=== PATIENT | male | born 1965 | race Caucasian/White ===

== ENCOUNTER 2022-01-30 20:27 | Inpatient (IN) | payer OTHER ==
[2022-01-30 21:06] VITALS: BMI 32.7
[2022-01-30] MEDS ORDERED: IBUPROFEN 400 MG TABLET (FP) PO PRN (21:15)
[2022-01-30] MEDS ORDERED: NALOXONE HCL 0.4 MG/ML VIAL IM PRN (21:15)
[2022-01-30] MEDS ORDERED: LOPERAMIDE HCL 2 MG CAPSULE PO PRN (21:15)
[2022-01-30] MEDS ORDERED: P-EPHED 60MG/TRIPROLIDI 2.5MG TABLET PO PRN (21:15)
[2022-01-30] MEDS ORDERED: guaiFENesin 200 MG/10 ML 10 ML UNIT-DOSE CUPS PO PRN (21:15)
[2022-01-30] MEDS ORDERED: MAG HYDROX/AL HYDROX/SIMETH 30 ML UNIT-DOSE CUP PO PRN (21:15)
[2022-01-30] MEDS ORDERED: NALOXONE (NARCAN) HCL 4 MG/0.1 ML SPRAY NS PRN (21:15)
[2022-01-30] MEDS ORDERED: MAGNESIUM CITRATE 300 ML BOTTLE PO PRN (21:15)
[2022-01-30] MEDS ORDERED: MAGNESIUM HYDROX 2400MG/30ML ORAL SUSPENSION 30 ML CUP PO PRN (21:15)
[2022-01-31] MEDS: MELATONIN 5 MG TABLETS PO SCH ×2 (02:10→21:19)
[2022-01-31] MEDS: THIAMINE HCL 100 MG TABLET (FP) PO SCH ×2 (02:10→21:19)
[2022-01-31] MEDS ORDERED: APIXABAN 5 MG TABLET PO SCH (10:00)
[2022-01-31] MEDS: ASPIRIN 81 MG CHEWABLE TABLETS PO SCH (10:22)
[2022-01-31] MEDS: amLODIPine BESYLATE 10 MG TABLET (FP) PO SCH (10:22)
[2022-01-31] MEDS: PANTOPRAZOLE 20 MG TABLET PO SCH (10:22)
[2022-01-31] MEDS: PRENATAL VITAMINS W/ FOLIC ACID TABLET (FP) PO SCH (10:23)
[2022-01-31 11:34] LABS: HEMATOCRIT 38.6 % (35.4-49); HEMOGLOBIN 13.1 GM/dL (11.7-16.9); MEAN CELL VOLUME 85.4 fl (80-96); MEAN PLT VOLUME 8.9 fl (7.5-11.1); PLATELET COUNT 275 10^3/uL (134-434); RBC 4.52 M/mm3 (4.00-5.60); RDW 14.9 % (11.9-15.9); WHITE BLOOD COUNT 7.2 K/mm3 (4.0-10.0)
[2022-01-31 12:45] LABS: CALCIUM 8.8 mg/dL (8.5-10.1)
[2022-01-31 12:47] LABS: ALBUMIN 3.9 g/dl (3.4-5.0); BLOOD UREA NITROGEN 12.7 mg/dL (7-18)
[2022-01-31 12:48] LABS: CREATININE 1.1 mg/dL (0.55-1.3)
[2022-01-31 12:51] LABS: BILIRUBIN,TOTAL 0.8 mg/dL (0.2-1); TOT PROT 7.2 g/dl (6.4-8.2)
[2022-01-31 13:40] LABS: SYPHILIS W/ RPR CONF NON-REACTIVE (NONREACTIVE)
[2022-01-31 14:09] LABS: HIV INTERPRETATION NEGATIVE (NEGATIVE)
[2022-01-31 18:45] LABS: PH,URINE 5.5 (5.0-8.0); URINE APPEARANCE CLEAR; URINE BILIRUBIN NEGATIVE (NEGATIVE); URINE COLOR YELLOW; URINE GLUCOSE (UA) NEGATIVE (NEGATIVE); URINE KETONE TRACE (NEGATIVE); URINE LEUK ESTERASE NEGATIVE (NEGATIVE); URINE NITRITE NEGATIVE (NEGATIVE); URINE PROTEIN TRACE (NEGATIVE)
[2022-01-31] MEDS: LISINOPRIL 20 MG TABLET PO SCH (21:19)
[2022-01-31] MEDS: APIXABAN 5 MG TABLET PO SCH (21:20)
[2022-02-01] MEDS: APIXABAN 5 MG TABLET PO SCH ×2 (09:22→21:12)
[2022-02-01] MEDS: PANTOPRAZOLE 20 MG TABLET PO SCH (09:22)
[2022-02-01] MEDS: ASPIRIN 81 MG CHEWABLE TABLETS PO SCH (09:22)
[2022-02-01] MEDS: PRENATAL VITAMINS W/ FOLIC ACID TABLET (FP) PO SCH (09:22)
[2022-02-01] MEDS: amLODIPine BESYLATE 10 MG TABLET (FP) PO SCH (09:22)
[2022-02-01] MEDS: THIAMINE HCL 100 MG TABLET (FP) PO SCH (21:12)
[2022-02-01] MEDS: MELATONIN 5 MG TABLETS PO SCH (21:12)
[2022-02-01] MEDS: LISINOPRIL 20 MG TABLET PO SCH (21:12)
[2022-02-02 00:06] LABS: SARS-CoV-2 NAA Not Detected (Not Detected)
[2022-02-02] MEDS: APIXABAN 5 MG TABLET PO SCH ×2 (10:12→21:57)
[2022-02-02] MEDS: amLODIPine BESYLATE 10 MG TABLET (FP) PO SCH (10:12)
[2022-02-02] MEDS: PRENATAL VITAMINS W/ FOLIC ACID TABLET (FP) PO SCH (10:12)
[2022-02-02] MEDS: PANTOPRAZOLE 20 MG TABLET PO SCH (10:13)
[2022-02-02] MEDS: ASPIRIN 81 MG CHEWABLE TABLETS PO SCH (10:13)
[2022-02-02] MEDS: MELATONIN 5 MG TABLETS PO SCH (21:58)
[2022-02-02] MEDS: LISINOPRIL 20 MG TABLET PO SCH (21:58)
[2022-02-02] MEDS: THIAMINE HCL 100 MG TABLET (FP) PO SCH (21:58)
[2022-02-03] MEDS: APIXABAN 5 MG TABLET PO SCH ×2 (10:49→21:10)
[2022-02-03] MEDS: PRENATAL VITAMINS W/ FOLIC ACID TABLET (FP) PO SCH (10:49)
[2022-02-03] MEDS: amLODIPine BESYLATE 10 MG TABLET (FP) PO SCH (10:49)
[2022-02-03] MEDS: PANTOPRAZOLE 20 MG TABLET PO SCH ×2 (10:49→21:11)
[2022-02-03] MEDS: ASPIRIN 81 MG CHEWABLE TABLETS PO SCH (10:51)
[2022-02-03] MEDS: MELATONIN 5 MG TABLETS PO SCH (21:09)
[2022-02-03] MEDS: THIAMINE HCL 100 MG TABLET (FP) PO SCH (21:09)
[2022-02-03] MEDS: LISINOPRIL 20 MG TABLET PO SCH (21:10)
[2022-02-03] MEDS: ATORVASTATIN CA 40 MG TABLET (FP) PO SCH (21:11)
[2022-02-04] MEDS: PRENATAL VITAMINS W/ FOLIC ACID TABLET (FP) PO SCH (10:09)
[2022-02-04] MEDS: APIXABAN 5 MG TABLET PO SCH ×2 (10:10→21:23)
[2022-02-04] MEDS: PANTOPRAZOLE 20 MG TABLET PO SCH ×3 (10:10→21:24)
[2022-02-04] MEDS: ASPIRIN 81 MG CHEWABLE TABLETS PO SCH (10:10)
[2022-02-04] MEDS: amLODIPine BESYLATE 10 MG TABLET (FP) PO SCH (10:10)
[2022-02-04] MEDS: MELATONIN 5 MG TABLETS PO SCH (21:23)
[2022-02-04] MEDS: THIAMINE HCL 100 MG TABLET (FP) PO SCH (21:23)
[2022-02-04] MEDS: ATORVASTATIN CA 40 MG TABLET (FP) PO SCH (21:23)
[2022-02-04] MEDS: LISINOPRIL 20 MG TABLET PO SCH (21:23)
[2022-02-05] MEDS: ASPIRIN 81 MG CHEWABLE TABLETS PO SCH (09:58)
[2022-02-05] MEDS: APIXABAN 5 MG TABLET PO SCH ×2 (09:58→21:09)
[2022-02-05] MEDS: amLODIPine BESYLATE 10 MG TABLET (FP) PO SCH (09:59)
[2022-02-05] MEDS: PANTOPRAZOLE 20 MG TABLET PO SCH ×3 (09:59→21:09)
[2022-02-05] MEDS: PRENATAL VITAMINS W/ FOLIC ACID TABLET (FP) PO SCH (09:59)
[2022-02-05] MEDS: ATORVASTATIN CA 40 MG TABLET (FP) PO SCH (21:09)
[2022-02-05] MEDS: MELATONIN 5 MG TABLETS PO SCH (21:09)
[2022-02-05] MEDS: LISINOPRIL 20 MG TABLET PO SCH (21:09)
[2022-02-05] MEDS: THIAMINE HCL 100 MG TABLET (FP) PO SCH (21:09)
[2022-02-06] MEDS: PANTOPRAZOLE 20 MG TABLET PO SCH ×2 (09:54→22:01)
[2022-02-06] MEDS: APIXABAN 5 MG TABLET PO SCH ×2 (09:54→22:02)
[2022-02-06] MEDS: amLODIPine BESYLATE 10 MG TABLET (FP) PO SCH (09:54)
[2022-02-06] MEDS: ASPIRIN 81 MG CHEWABLE TABLETS PO SCH (09:54)
[2022-02-06] MEDS: PRENATAL VITAMINS W/ FOLIC ACID TABLET (FP) PO SCH (09:54)
[2022-02-06] MEDS ORDERED: BUPRENORPHINE/NALOXONE 4 MG/1 MG FILM PACKET SL ONE (13:15)
[2022-02-06] MEDS: MELATONIN 5 MG TABLETS PO SCH (22:00)
[2022-02-06] MEDS: LISINOPRIL 20 MG TABLET PO SCH (22:01)
[2022-02-06] MEDS: THIAMINE HCL 100 MG TABLET (FP) PO SCH (22:02)
[2022-02-06] MEDS: ATORVASTATIN CA 40 MG TABLET (FP) PO SCH (22:02)
[2022-02-07] MEDS: PRENATAL VITAMINS W/ FOLIC ACID TABLET (FP) PO SCH (09:35)
[2022-02-07] MEDS: APIXABAN 5 MG TABLET PO SCH ×2 (09:35→21:04)
[2022-02-07] MEDS: amLODIPine BESYLATE 10 MG TABLET (FP) PO SCH (09:35)
[2022-02-07] MEDS: ASPIRIN 81 MG CHEWABLE TABLETS PO SCH (09:35)
[2022-02-07] MEDS: BUPRENORPHINE/NALOXONE 4 MG/1 MG FILM PACKET SL SCH ×2 (09:35→21:06)
[2022-02-07] MEDS: PANTOPRAZOLE 20 MG TABLET PO SCH ×2 (09:35→21:04)
[2022-02-07] MEDS: MELATONIN 5 MG TABLETS PO SCH (21:04)
[2022-02-07] MEDS: ATORVASTATIN CA 40 MG TABLET (FP) PO SCH (21:04)
[2022-02-07] MEDS: THIAMINE HCL 100 MG TABLET (FP) PO SCH (21:05)
[2022-02-07] MEDS: LISINOPRIL 20 MG TABLET PO SCH (21:05)
[2022-02-08] MEDS: amLODIPine BESYLATE 10 MG TABLET (FP) PO SCH (05:55)
[2022-02-08] MEDS: PANTOPRAZOLE 20 MG TABLET PO SCH ×2 (09:37→21:41)
[2022-02-08] MEDS: ASPIRIN 81 MG CHEWABLE TABLETS PO SCH (09:37)
[2022-02-08] MEDS: APIXABAN 5 MG TABLET PO SCH ×2 (09:37→21:42)
[2022-02-08] MEDS: PRENATAL VITAMINS W/ FOLIC ACID TABLET (FP) PO SCH (09:37)
[2022-02-08] MEDS: BUPRENORPHINE/NALOXONE 4 MG/1 MG FILM PACKET SL SCH ×2 (09:37→21:43)
[2022-02-08] MEDS: ATORVASTATIN CA 40 MG TABLET (FP) PO SCH (21:41)
[2022-02-08] MEDS: LISINOPRIL 20 MG TABLET PO SCH (21:41)
[2022-02-08] MEDS: THIAMINE HCL 100 MG TABLET (FP) PO SCH (21:41)
[2022-02-08] MEDS: MELATONIN 5 MG TABLETS PO SCH (21:43)
[2022-02-09] MEDS: amLODIPine BESYLATE 10 MG TABLET (FP) PO SCH (05:53)
[2022-02-09] MEDS: PANTOPRAZOLE 20 MG TABLET PO SCH ×2 (09:54→17:46)
[2022-02-09] MEDS: APIXABAN 5 MG TABLET PO SCH ×2 (09:54→17:47)
[2022-02-09] MEDS: PRENATAL VITAMINS W/ FOLIC ACID TABLET (FP) PO SCH (09:54)
[2022-02-09] MEDS: ASPIRIN 81 MG CHEWABLE TABLETS PO SCH (09:54)
[2022-02-09] MEDS: BUPRENORPHINE/NALOXONE 4 MG/1 MG FILM PACKET SL SCH ×2 (09:55→17:48)
[2022-02-09] MEDS: LISINOPRIL 20 MG TABLET PO SCH (21:24)
[2022-02-09] MEDS: THIAMINE HCL 100 MG TABLET (FP) PO SCH (21:24)
[2022-02-09] MEDS: MELATONIN 5 MG TABLETS PO SCH (21:24)
[2022-02-09] MEDS: ATORVASTATIN CA 40 MG TABLET (FP) PO SCH (21:25)
[2022-02-10] MEDS: APIXABAN 5 MG TABLET PO SCH ×2 (06:19→18:38)
[2022-02-10] MEDS: PANTOPRAZOLE 20 MG TABLET PO SCH ×2 (06:19→18:38)
[2022-02-10] MEDS: amLODIPine BESYLATE 10 MG TABLET (FP) PO SCH (06:19)
[2022-02-10] MEDS: ASPIRIN 81 MG CHEWABLE TABLETS PO SCH (06:19)
[2022-02-10] MEDS: BUPRENORPHINE/NALOXONE 4 MG/1 MG FILM PACKET SL SCH ×2 (09:52→18:38)
[2022-02-10] MEDS: PRENATAL VITAMINS W/ FOLIC ACID TABLET (FP) PO SCH (09:52)
[2022-02-10] MEDS: LISINOPRIL 20 MG TABLET PO SCH (21:27)
[2022-02-10] MEDS: ATORVASTATIN CA 40 MG TABLET (FP) PO SCH (21:27)
[2022-02-10] MEDS: MELATONIN 5 MG TABLETS PO SCH (21:27)
[2022-02-10] MEDS: THIAMINE HCL 100 MG TABLET (FP) PO SCH (21:27)
[2022-02-11] MEDS: APIXABAN 5 MG TABLET PO SCH ×2 (06:10→18:44)
[2022-02-11] MEDS: PANTOPRAZOLE 20 MG TABLET PO SCH ×2 (06:10→18:44)
[2022-02-11] MEDS: ASPIRIN 81 MG CHEWABLE TABLETS PO SCH (06:10)
[2022-02-11] MEDS: amLODIPine BESYLATE 10 MG TABLET (FP) PO SCH (06:10)
[2022-02-11] MEDS: PRENATAL VITAMINS W/ FOLIC ACID TABLET (FP) PO SCH (09:59)
[2022-02-11] MEDS: BUPRENORPHINE/NALOXONE 4 MG/1 MG FILM PACKET SL SCH ×2 (09:59→18:44)
[2022-02-11] MEDS: MELATONIN 5 MG TABLETS PO SCH (21:13)
[2022-02-11] MEDS: THIAMINE HCL 100 MG TABLET (FP) PO SCH (21:13)
[2022-02-11] MEDS: ATORVASTATIN CA 40 MG TABLET (FP) PO SCH (21:14)
[2022-02-11] MEDS: LISINOPRIL 20 MG TABLET PO SCH (21:14)
[2022-02-12] MEDS: APIXABAN 5 MG TABLET PO SCH ×2 (06:27→18:28)
[2022-02-12] MEDS: PANTOPRAZOLE 20 MG TABLET PO SCH ×2 (06:27→18:28)
[2022-02-12] MEDS: amLODIPine BESYLATE 10 MG TABLET (FP) PO SCH (06:28)
[2022-02-12] MEDS: ASPIRIN 81 MG CHEWABLE TABLETS PO SCH (06:28)
[2022-02-12] MEDS: BUPRENORPHINE/NALOXONE 4 MG/1 MG FILM PACKET SL SCH ×2 (09:40→18:28)
[2022-02-12] MEDS: PRENATAL VITAMINS W/ FOLIC ACID TABLET (FP) PO SCH (09:40)
[2022-02-12] MEDS: LISINOPRIL 20 MG TABLET PO SCH (21:22)
[2022-02-12] MEDS: MELATONIN 5 MG TABLETS PO SCH (21:22)
[2022-02-12] MEDS: ATORVASTATIN CA 40 MG TABLET (FP) PO SCH (21:22)
[2022-02-12] MEDS: THIAMINE HCL 100 MG TABLET (FP) PO SCH (21:22)
[2022-02-13] MEDS: amLODIPine BESYLATE 10 MG TABLET (FP) PO SCH (06:15)
[2022-02-13] MEDS: PANTOPRAZOLE 20 MG TABLET PO SCH ×2 (06:15→17:33)
[2022-02-13] MEDS: ASPIRIN 81 MG CHEWABLE TABLETS PO SCH (06:15)
[2022-02-13] MEDS: APIXABAN 5 MG TABLET PO SCH ×2 (06:15→17:33)
[2022-02-13] MEDS: PRENATAL VITAMINS W/ FOLIC ACID TABLET (FP) PO SCH (09:37)
[2022-02-13] MEDS: BUPRENORPHINE/NALOXONE 4 MG/1 MG FILM PACKET SL SCH ×2 (09:38→17:33)
[2022-02-13] MEDS: ATORVASTATIN CA 40 MG TABLET (FP) PO SCH (21:17)
[2022-02-13] MEDS: LISINOPRIL 20 MG TABLET PO SCH (21:17)
[2022-02-13] MEDS: MELATONIN 5 MG TABLETS PO SCH (21:17)
[2022-02-13] MEDS: THIAMINE HCL 100 MG TABLET (FP) PO SCH (21:17)
[2022-02-14] MEDS: amLODIPine BESYLATE 10 MG TABLET (FP) PO SCH (06:36)
[2022-02-14] MEDS: ASPIRIN 81 MG CHEWABLE TABLETS PO SCH (06:36)
[2022-02-14] MEDS: APIXABAN 5 MG TABLET PO SCH ×2 (06:36→18:00)
[2022-02-14] MEDS: PANTOPRAZOLE 20 MG TABLET PO SCH ×2 (06:36→18:00)
[2022-02-14] MEDS: BUPRENORPHINE/NALOXONE 4 MG/1 MG FILM PACKET SL SCH ×2 (09:46→18:00)
[2022-02-14] MEDS: PRENATAL VITAMINS W/ FOLIC ACID TABLET (FP) PO SCH (09:46)
[2022-02-14] MEDS: ATORVASTATIN CA 40 MG TABLET (FP) PO SCH (21:41)
[2022-02-14] MEDS: THIAMINE HCL 100 MG TABLET (FP) PO SCH (21:41)
[2022-02-14] MEDS: MELATONIN 5 MG TABLETS PO SCH (21:41)
[2022-02-14] MEDS: LISINOPRIL 20 MG TABLET PO SCH (21:41)
[2022-02-15] MEDS: ASPIRIN 81 MG CHEWABLE TABLETS PO SCH (06:06)
[2022-02-15] MEDS: amLODIPine BESYLATE 10 MG TABLET (FP) PO SCH (06:06)
[2022-02-15] MEDS: PANTOPRAZOLE 20 MG TABLET PO SCH ×2 (06:06→18:51)
[2022-02-15] MEDS: APIXABAN 5 MG TABLET PO SCH ×2 (06:06→18:51)
[2022-02-15] MEDS: BUPRENORPHINE/NALOXONE 4 MG/1 MG FILM PACKET SL SCH ×2 (09:41→18:51)
[2022-02-15] MEDS: PRENATAL VITAMINS W/ FOLIC ACID TABLET (FP) PO SCH (09:41)
[2022-02-15] MEDS ORDERED: ATORVASTATIN CA 20 MG TABLET (FP) ONE (18:50)
[2022-02-15] MEDS: THIAMINE HCL 100 MG TABLET (FP) PO SCH (21:17)
[2022-02-15] MEDS: MELATONIN 5 MG TABLETS PO SCH (21:17)
[2022-02-15] MEDS: LISINOPRIL 20 MG TABLET PO SCH (21:18)
[2022-02-15] MEDS: ATORVASTATIN CA 40 MG TABLET (FP) PO SCH (21:18)
[2022-02-16] MEDS: amLODIPine BESYLATE 10 MG TABLET (FP) PO SCH (06:12)
[2022-02-16] MEDS: APIXABAN 5 MG TABLET PO SCH ×2 (06:12→17:51)
[2022-02-16] MEDS: ASPIRIN 81 MG CHEWABLE TABLETS PO SCH (06:12)
[2022-02-16] MEDS: PANTOPRAZOLE 20 MG TABLET PO SCH ×2 (06:12→17:51)
[2022-02-16] MEDS: PRENATAL VITAMINS W/ FOLIC ACID TABLET (FP) PO SCH (09:49)
[2022-02-16] MEDS: BUPRENORPHINE/NALOXONE 4 MG/1 MG FILM PACKET SL SCH ×2 (09:50→17:51)
[2022-02-16] MEDS: THIAMINE HCL 100 MG TABLET (FP) PO SCH (21:18)
[2022-02-16] MEDS: ATORVASTATIN CA 40 MG TABLET (FP) PO SCH (21:18)
[2022-02-16] MEDS: LISINOPRIL 20 MG TABLET PO SCH (21:18)
[2022-02-16] MEDS: MELATONIN 5 MG TABLETS PO SCH (21:19)
[2022-02-16] MEDS: hydrOXYzine PAMOATE 25 MG CAPSULE (FP) PO PRN (21:19)
[2022-02-17] MEDS: amLODIPine BESYLATE 10 MG TABLET (FP) PO SCH (06:21)
[2022-02-17] MEDS: PANTOPRAZOLE 20 MG TABLET PO SCH ×2 (06:21→18:12)
[2022-02-17] MEDS: ASPIRIN 81 MG CHEWABLE TABLETS PO SCH (06:21)
[2022-02-17] MEDS: APIXABAN 5 MG TABLET PO SCH ×2 (06:22→18:12)
[2022-02-17] MEDS: BUPRENORPHINE/NALOXONE 4 MG/1 MG FILM PACKET SL SCH ×2 (09:58→18:12)
[2022-02-17] MEDS: PRENATAL VITAMINS W/ FOLIC ACID TABLET (FP) PO SCH (09:58)
[2022-02-17] MEDS: hydrOXYzine PAMOATE 25 MG CAPSULE (FP) PO PRN (21:21)
[2022-02-17] MEDS: LISINOPRIL 20 MG TABLET PO SCH (21:21)
[2022-02-17] MEDS: ATORVASTATIN CA 40 MG TABLET (FP) PO SCH (21:21)
[2022-02-17] MEDS: MELATONIN 5 MG TABLETS PO SCH (21:21)
[2022-02-17] MEDS: THIAMINE HCL 100 MG TABLET (FP) PO SCH (21:21)
[2022-02-18] MEDS: APIXABAN 5 MG TABLET PO SCH ×2 (05:57→17:36)
[2022-02-18] MEDS: ASPIRIN 81 MG CHEWABLE TABLETS PO SCH (05:57)
[2022-02-18] MEDS: PANTOPRAZOLE 20 MG TABLET PO SCH ×2 (05:58→17:36)
[2022-02-18] MEDS: amLODIPine BESYLATE 10 MG TABLET (FP) PO SCH (05:58)
[2022-02-18] MEDS: PRENATAL VITAMINS W/ FOLIC ACID TABLET (FP) PO SCH (10:03)
[2022-02-18] MEDS: BUPRENORPHINE/NALOXONE 4 MG/1 MG FILM PACKET SL SCH ×2 (10:04→17:36)
[2022-02-18] MEDS: LISINOPRIL 20 MG TABLET PO SCH (21:05)
[2022-02-18] MEDS: hydrOXYzine PAMOATE 25 MG CAPSULE (FP) PO PRN (21:05)
[2022-02-18] MEDS: ATORVASTATIN CA 40 MG TABLET (FP) PO SCH (21:05)
[2022-02-18] MEDS: THIAMINE HCL 100 MG TABLET (FP) PO SCH (21:05)
[2022-02-18] MEDS: MELATONIN 5 MG TABLETS PO SCH (21:05)
[2022-02-19] MEDS: APIXABAN 5 MG TABLET PO SCH ×2 (06:08→17:35)
[2022-02-19] MEDS: PANTOPRAZOLE 20 MG TABLET PO SCH ×2 (06:08→17:35)
[2022-02-19] MEDS: amLODIPine BESYLATE 10 MG TABLET (FP) PO SCH (06:08)
[2022-02-19] MEDS: ASPIRIN 81 MG CHEWABLE TABLETS PO SCH (06:08)
[2022-02-19] MEDS: PRENATAL VITAMINS W/ FOLIC ACID TABLET (FP) PO SCH (10:09)
[2022-02-19] MEDS: BUPRENORPHINE/NALOXONE 4 MG/1 MG FILM PACKET SL SCH ×2 (10:10→17:35)
[2022-02-19] MEDS: LISINOPRIL 20 MG TABLET PO SCH (21:15)
[2022-02-19] MEDS: THIAMINE HCL 100 MG TABLET (FP) PO SCH (21:15)
[2022-02-19] MEDS: ATORVASTATIN CA 40 MG TABLET (FP) PO SCH (21:15)
[2022-02-19] MEDS: hydrOXYzine PAMOATE 25 MG CAPSULE (FP) PO PRN (21:15)
[2022-02-19] MEDS: MELATONIN 5 MG TABLETS PO SCH (21:15)
[2022-02-20] MEDS: APIXABAN 5 MG TABLET PO SCH ×2 (06:10→17:11)
[2022-02-20] MEDS: amLODIPine BESYLATE 10 MG TABLET (FP) PO SCH (06:10)
[2022-02-20] MEDS: ASPIRIN 81 MG CHEWABLE TABLETS PO SCH (06:10)
[2022-02-20] MEDS: PANTOPRAZOLE 20 MG TABLET PO SCH ×2 (06:10→17:11)
[2022-02-20] MEDS: PRENATAL VITAMINS W/ FOLIC ACID TABLET (FP) PO SCH (10:48)
[2022-02-20] MEDS: BUPRENORPHINE/NALOXONE 4 MG/1 MG FILM PACKET SL SCH ×2 (10:48→17:11)
[2022-02-20] MEDS: ACETAMINOPHEN 325 MG TABLET (FP) PO PRN (14:26)
[2022-02-20] MEDS: MELATONIN 5 MG TABLETS PO SCH (21:09)
[2022-02-20] MEDS: THIAMINE HCL 100 MG TABLET (FP) PO SCH (21:09)
[2022-02-20] MEDS: LISINOPRIL 20 MG TABLET PO SCH (21:10)
[2022-02-20] MEDS: ATORVASTATIN CA 40 MG TABLET (FP) PO SCH (21:10)
[2022-02-20] MEDS: hydrOXYzine PAMOATE 25 MG CAPSULE (FP) PO PRN (21:10)
[2022-02-21] MEDS: APIXABAN 5 MG TABLET PO SCH ×2 (06:15→17:57)
[2022-02-21] MEDS: amLODIPine BESYLATE 10 MG TABLET (FP) PO SCH (06:15)
[2022-02-21] MEDS: ASPIRIN 81 MG CHEWABLE TABLETS PO SCH (06:15)
[2022-02-21] MEDS: PANTOPRAZOLE 20 MG TABLET PO SCH ×2 (06:15→17:57)
[2022-02-21] MEDS: BUPRENORPHINE/NALOXONE 4 MG/1 MG FILM PACKET SL SCH ×2 (10:14→17:58)
[2022-02-21] MEDS: PRENATAL VITAMINS W/ FOLIC ACID TABLET (FP) PO SCH (10:15)
[2022-02-21] MEDS: LISINOPRIL 20 MG TABLET PO SCH (21:42)
[2022-02-21] MEDS: ATORVASTATIN CA 40 MG TABLET (FP) PO SCH (21:42)
[2022-02-21] MEDS: hydrOXYzine PAMOATE 25 MG CAPSULE (FP) PO PRN (21:42)
[2022-02-21] MEDS: THIAMINE HCL 100 MG TABLET (FP) PO SCH (21:42)
[2022-02-21] MEDS: MELATONIN 5 MG TABLETS PO SCH (21:43)
[2022-02-22] MEDS: amLODIPine BESYLATE 10 MG TABLET (FP) PO SCH (06:19)
[2022-02-22] MEDS: APIXABAN 5 MG TABLET PO SCH ×2 (06:19→18:28)
[2022-02-22] MEDS: PANTOPRAZOLE 20 MG TABLET PO SCH ×2 (06:19→18:28)
[2022-02-22] MEDS: ASPIRIN 81 MG CHEWABLE TABLETS PO SCH (06:19)
[2022-02-22] MEDS: PRENATAL VITAMINS W/ FOLIC ACID TABLET (FP) PO SCH (09:55)
[2022-02-22] MEDS: BUPRENORPHINE/NALOXONE 4 MG/1 MG FILM PACKET SL SCH ×2 (09:56→18:28)
[2022-02-22] MEDS: THIAMINE HCL 100 MG TABLET (FP) PO SCH (21:13)
[2022-02-22] MEDS: LISINOPRIL 20 MG TABLET PO SCH (21:13)
[2022-02-22] MEDS: ATORVASTATIN CA 40 MG TABLET (FP) PO SCH (21:15)
[2022-02-22] MEDS: MELATONIN 5 MG TABLETS PO SCH (21:15)
[2022-02-22] MEDS: hydrOXYzine PAMOATE 25 MG CAPSULE (FP) PO PRN (21:15)
[2022-02-23] MEDS: ASPIRIN 81 MG CHEWABLE TABLETS PO SCH (05:56)
[2022-02-23] MEDS: APIXABAN 5 MG TABLET PO SCH ×2 (05:56→17:35)
[2022-02-23] MEDS: amLODIPine BESYLATE 10 MG TABLET (FP) PO SCH (05:56)
[2022-02-23] MEDS: PANTOPRAZOLE 20 MG TABLET PO SCH ×2 (05:56→17:35)
[2022-02-23] MEDS ORDERED: COLLOIDAL OATMEAL 1 BAR EACH TP PRN (08:41)
[2022-02-23] MEDS: BUPRENORPHINE/NALOXONE 4 MG/1 MG FILM PACKET SL SCH ×2 (10:37→17:41)
[2022-02-23] MEDS: PRENATAL VITAMINS W/ FOLIC ACID TABLET (FP) PO SCH (10:37)
[2022-02-23] MEDS: MELATONIN 5 MG TABLETS PO SCH (21:33)
[2022-02-23] MEDS: LISINOPRIL 20 MG TABLET PO SCH (21:33)
[2022-02-23] MEDS: THIAMINE HCL 100 MG TABLET (FP) PO SCH (21:33)
[2022-02-23] MEDS: hydrOXYzine PAMOATE 25 MG CAPSULE (FP) PO PRN (21:34)
[2022-02-23] MEDS: ATORVASTATIN CA 40 MG TABLET (FP) PO SCH (21:34)
[2022-02-24] MEDS: APIXABAN 5 MG TABLET PO SCH ×2 (06:23→17:31)
[2022-02-24] MEDS: PANTOPRAZOLE 20 MG TABLET PO SCH ×2 (06:23→17:31)
[2022-02-24] MEDS: ASPIRIN 81 MG CHEWABLE TABLETS PO SCH (06:23)
[2022-02-24] MEDS: amLODIPine BESYLATE 10 MG TABLET (FP) PO SCH (06:23)
[2022-02-24] MEDS: PRENATAL VITAMINS W/ FOLIC ACID TABLET (FP) PO SCH (09:16)
[2022-02-24] MEDS: BUPRENORPHINE/NALOXONE 4 MG/1 MG FILM PACKET SL SCH ×2 (09:16→17:31)
[2022-02-24] MEDS: ATORVASTATIN CA 40 MG TABLET (FP) PO SCH (21:22)
[2022-02-24] MEDS: hydrOXYzine PAMOATE 25 MG CAPSULE (FP) PO PRN (21:22)
[2022-02-24] MEDS: MELATONIN 5 MG TABLETS PO SCH (21:23)
[2022-02-24] MEDS: LISINOPRIL 20 MG TABLET PO SCH (21:23)
[2022-02-24] MEDS: THIAMINE HCL 100 MG TABLET (FP) PO SCH (21:23)
[2022-02-25] MEDS: ASPIRIN 81 MG CHEWABLE TABLETS PO SCH (06:09)
[2022-02-25] MEDS: PANTOPRAZOLE 20 MG TABLET PO SCH ×2 (06:09→17:50)
[2022-02-25] MEDS: amLODIPine BESYLATE 10 MG TABLET (FP) PO SCH (06:09)
[2022-02-25] MEDS: APIXABAN 5 MG TABLET PO SCH ×2 (06:09→17:50)
[2022-02-25] MEDS: BUPRENORPHINE/NALOXONE 4 MG/1 MG FILM PACKET SL SCH ×2 (09:49→17:50)
[2022-02-25] MEDS: PRENATAL VITAMINS W/ FOLIC ACID TABLET (FP) PO SCH (09:49)
[2022-02-25] MEDS: ACETAMINOPHEN 325 MG TABLET (FP) PO PRN (11:54)
[2022-02-25] MEDS ORDERED: BUPRENORPHINE/NALOXONE 4 MG/1 MG FILM PACKET SL ONE (13:45)
[2022-02-25] MEDS: THIAMINE HCL 100 MG TABLET (FP) PO SCH (21:10)
[2022-02-25] MEDS: ATORVASTATIN CA 40 MG TABLET (FP) PO SCH (21:10)
[2022-02-25] MEDS: MELATONIN 5 MG TABLETS PO SCH (21:10)
[2022-02-25] MEDS: LISINOPRIL 20 MG TABLET PO SCH (21:10)
[2022-02-25] MEDS: hydrOXYzine PAMOATE 25 MG CAPSULE (FP) PO PRN (21:10)
[2022-02-26] MEDS: APIXABAN 5 MG TABLET PO SCH ×2 (06:09→17:27)
[2022-02-26] MEDS: amLODIPine BESYLATE 10 MG TABLET (FP) PO SCH (06:09)
[2022-02-26] MEDS: PANTOPRAZOLE 20 MG TABLET PO SCH ×2 (06:09→17:27)
[2022-02-26] MEDS: ASPIRIN 81 MG CHEWABLE TABLETS PO SCH (06:09)
[2022-02-26 07:29] VITALS: TEMP 98.1
[2022-02-26] MEDS: PRENATAL VITAMINS W/ FOLIC ACID TABLET (FP) PO SCH (09:35)
[2022-02-26] MEDS: BUPRENORPHINE/NALOXONE 8 MG/2 MG FILM PACKET SL SCH (09:35)
[2022-02-26] MEDS: BUPRENORPHINE/NALOXONE 4 MG/1 MG FILM PACKET SL SCH (17:28)
[2022-02-26 20:41] VITALS: BP 134/83; PULSE 102
[2022-02-26] MEDS: LISINOPRIL 20 MG TABLET PO SCH (21:29)
[2022-02-26] MEDS: hydrOXYzine PAMOATE 25 MG CAPSULE (FP) PO PRN (21:29)
[2022-02-26] MEDS: THIAMINE HCL 100 MG TABLET (FP) PO SCH (21:30)
[2022-02-26] MEDS: MELATONIN 5 MG TABLETS PO SCH (21:30)
[2022-02-26] MEDS: ATORVASTATIN CA 40 MG TABLET (FP) PO SCH (21:30)
[2022-02-26] MEDS: ACETAMINOPHEN 325 MG TABLET (FP) PO PRN (21:59)
[2022-02-27] MEDS: PANTOPRAZOLE 20 MG TABLET PO SCH (06:19)
[2022-02-27] MEDS: APIXABAN 5 MG TABLET PO SCH (06:19)
[2022-02-27] MEDS: ASPIRIN 81 MG CHEWABLE TABLETS PO SCH (06:19)
[2022-02-27] MEDS: amLODIPine BESYLATE 10 MG TABLET (FP) PO SCH (06:20)
[2022-02-27] MEDS: PRENATAL VITAMINS W/ FOLIC ACID TABLET (FP) PO SCH (09:08)
[2022-02-27] MEDS: BUPRENORPHINE/NALOXONE 8 MG/2 MG FILM PACKET SL SCH (09:09)
== END 2022-02-27 09:38 | disposition home or self-care (01) | DRG 772 ==
LOC: YASAS 20:27 → Y3W 01-31 00:50
PROVIDERS: ADMIT Allergy & Immunology; ATTEND Allergy & Immunology
PROC: HZ42ZZZ Group Counseling for Substance Abuse Treatment, Cognitive-Behavioral (ICD-10-PCS; principal; 2022-01-31)
DX: F11.20 Opioid dependence, uncomplicated (principal); F41.1 Generalized anxiety disorder; F43.10 Post-traumatic stress disorder, unspecified; E78.5 Hyperlipidemia, unspecified; I48.91 Unspecified atrial fibrillation; I10 Essential (primary) hypertension; Z95.5 Presence of coronary angioplasty implant and graft; K21.9 Gastro-esophageal reflux disease without esophagitis; M54.50 Low back pain, unspecified; G89.29 Other chronic pain; E66.9 Obesity, unspecified; Z68.32 Body mass index [BMI] 32.0-32.9, adult; Z79.01 Long term (current) use of anticoagulants; Z88.0 Allergy status to penicillin
CPT/HCPCS: 36415; 80053; 81003; 82962; 85027; 86780; 86803; 87389; 93005; 93010; C9803-CS; U0003; U0005